=== PATIENT | female | born 1980 | race Caucasian/White ===

== ENCOUNTER 2016-12-03 12:02 | Emergency (ER) | payer MEDICAID ==
[~2016-12-03] VITALS: Wt 70.0 kg
[~2016-12-03 12:02] MED LIST: HYDR-3498 PO; NO MEDS
[2016-12-03] MEDS ORDERED: KETOROLAC 30 MG INJ IM STA (13:27)
--- NOTE | 2016-12-03 14:06 | RADRPT ---
PROCEDURE: CT Brain without. CLINICAL INDICATION: Headaches. TECHNIQUE: A CT of the brain was performed on multidetector high-resolution CT scanner utilizing a xial sections from the skull base through the vertex without contrast. The scan was reviewed in sof t tissue brain and high frequency resolution bone algorithm windows. Images were reviewed on a high -resolution PACS workstation. One or more the following does reduction techniques were utilized: Aut omated exposure control, adjustment of the mA/ or kV according to patient's size, or use of iterativ e reconstruction technique. The exam CTDI = 45.01 mGy and the DLP = 630.2 mGy-cm. COMPARISON: None available. FINDINGS: The ventricles and sulci are age-appropriate. There is no intracranial hemorrhage, mass effect or mi dline shift. No abnormal intra-axial or extra-axial fluid collections are seen. The odom/white erlinda er differentiation is preserved. No acute skull abnormality is noted. The visualized paranasal sinus es are essentially clear. IMPRESSION: 1. No acute intracranial hemorrhage, transcortical infarction or mass effect. RPTAT: QQ .Amisha Hernandez MD, MD Date Time Electronically viewed and signed by .Amisha Hernandez MD, MD on 12/03/2016 14:05 .N/
[2016-12-03] MEDS ORDERED: FIORICET PO (14:12)
[2016-12-03] MEDS ORDERED: BEN50 PO (14:12)
--- NOTE | 2016-12-03 14:15 | ERD ---
ER Documentation Chief Complaint Date/Time DATE: 12/03/16 TIME: 14:13 Chief Complaint HEADACHE X 1 DAY HPI 35-year-old female presents to the emergency department complaining of a nonspecific headache. Patient states recently she has been having difficulty sleeping. She describes a bifrontal and occipital headache. The headache is not acute in onset and is not thunderclap in nature. She reports no fevers chills or neck stiffness. She reports no neurologic symptoms with a headache. She currently reports the pain is moderate to severe. ROS All systems reviewed and are negative except as per history of present illness. Medications Home Meds Active Scripts Acetamin/Butalbital/Caffeine* (Fioricet*) [id number] Tab, 2 TAB PO Q6H Y for PAIN, #30 TAB Prov:VELIA CHRISTIANSON 12/03/16 Diphenhydramine Hcl* (Benadryl*) 50 Mg Cap, 50 MG PO Q6 Y for PAIN, #30 CAP Prov:VELIA CHRISTIANSON 12/03/16 Hydrocodone Bit-Acetaminophen* ([place]*) 5-325 Mg Tab, 1 TAB PO Q6 Y for PAIN, # 7 TAB Prov:GOSIA NAIK PA-C 05/05/16 Reported Medications [None] No Conflict Check 06/10/12 [No Meds] No Conflict Check 06/05/12 Allergies Allergies: Coded Allergies: No Known Allergy (Unverified , 06/10/12) PMhx/Soc Medical and Surgical Hx: pt denies Medical Hx History of Surgery: Yes (TUBAL LIGATION) Anesthesia Reaction: No Hx Neurological Disorder: No Hx Respiratory Disorders: No Hx Cardiac Disorders: No Hx Psychiatric Problems: No Hx Miscellaneous Medical Probl: No Hx Alcohol Use: No Hx Substance Use: No Hx Tobacco Use: No Smoking Status: Never smoker FmHx Noncontributory for chief complaint with no history of significant neurologic disease Physical Exam Vitals Vital Signs Date Time Temp Pulse Resp B/P Pulse Ox O2 Delivery O2 Flow Rate FiO2 12/03/16 12:09 98.0 69 18 106/59 99 Physical Exam GENERAL: The patient is well developed and appropriate for usual state of health in no apparent distress HEENT: Pupils equal, round, and reactive to light. EOMI. There is no scleral icterus. Sinuses are nontender NECK: C-spine is soft and supple, there is no meningismus. There is no cervical lymphadenopathy. LUNGS: Clear to auscultation bilaterally. There are no rales, wheezes or rhonchi. HEART: Regular rate and rhythm, no murmurs, clicks, rubs or gallops. Neuro: Patient is awake alert and oriented. She has a normal speech gait and balance. Results 24 hrs Current Medications Medications (Trade) Dose Ordered Sig/Leobardo Route PRN Reason Start Time Stop Time Status Last Admin Dose Admin Ketorolac Tromethamine (Toradol) 30 mg ONCE STAT IM 12/03/16 13:27 12/03/16 13:28 DC 12/03/16 13:40 Procedures/MDM Patient was taken to a room, seen and examined CT scan of the brain appreciated with radiology showing no acute disease Medical decision makin-year-old female with no significant risk factors for subarachnoid hemorrhage or meningitis presents the emergency department with a nonspecific headache. She is a normal neurologic examination with no clinical findings of significant intracranial concerns including no CT evidence of mass. Overall, patient is clinically well and nontoxic and appears appropriate for outpatient supportive care Departure Diagnosis: Primary Impression: Headache Condition: Stable Patient Instructions: Self-Care for Headaches Additional Instructions: See your doctor for follow-up as discussed. Take a copy of your test results, if appropriate, to this follow-up visit. See your doctor or return here if your symptoms do not improve as expected. At any time, please return to the emergency department for any change or worsening in her symptoms. VELIA CHRISTIANSON Dec 03, 2016 14:15
== END 2016-12-03 14:38 | disposition home or self-care (01) ==
LOC: FTE 12:02
DX: R51 Headache (principal)
CPT/HCPCS: 70450; 96372; J1885; Z7502

== ENCOUNTER 2017-11-06 00:05 | Emergency (ER) | END 2017-11-06 03:45 | disposition home or self-care (01) ==

== ENCOUNTER 2018-06-10 07:02 | Emergency (ER) | END 2018-06-10 11:47 | disposition home or self-care (01) ==

== ENCOUNTER 2018-08-29 10:02 | Emergency (ER) | END 2018-08-29 11:58 | disposition home or self-care (01) ==

== ENCOUNTER 2018-10-04 20:07 | Emergency (ER) | END 2018-10-04 23:01 | disposition home or self-care (01) ==